=== PATIENT | female | born 1975 | race Caucasian/White ===

== ENCOUNTER → 2024-01-09 13:32 | Outpatient (REF) | payer BC, SELFPAY | LOC: WDC 13:32 | PROVIDERS: ATTENDING PHYSICIAN Obstetrics & Gynecology; FAMILY PHYSICIAN Physician Assistant Medical | DX: R92.2 Inconclusive mammogram (principal); Z91.89 Other specified personal risk factors, not elsewhere classified; Z12.31 Encounter for screening mammogram for malignant neoplasm of breast | CPT/HCPCS: 77049; 77063; 77067; A9585 ==

== ENCOUNTER → 2024-04-24 10:14 | Outpatient (REF) | payer BC, SELFPAY | LOC: HWRAD 10:14 | PROVIDERS: ATTENDING PHYSICIAN Physician Assistant Medical | DX: R10.9 Unspecified abdominal pain (principal); R31.9 Hematuria, unspecified; Z87.442 Personal history of urinary calculi | CPT/HCPCS: 74176 ==

== ENCOUNTER 2024-04-25 11:47 | Emergency (ER) | payer BC, SELFPAY ==
[2024-04-25 11:50] VITALS: BP 146/90
--- NOTE | 2024-04-25 12:50 | ED.GENMED ---
History of Present Illness
General
Chief Complaint: Back Pain
Source: patient
Exam Limitations: none
Time Seen by Provider: 04/25/24 12:20
Nursing documentation reviewed up to this point in time: agreed with
History of Present Illness
History of Present Illness:
Patient to ED with complaint of right lower back pain that radiates at times to right side of abdomen. Symptoms started 1 week ago and continue to worsen. SHe was evaluated by PCP and sent for CT yesterday AM to r/o renal stones. CT reveals
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 Taking ibuprofen without improvement. SHe was seen by her chiropractor this AM for an adjustement. States her chiropractor recommends muscle relaxant and steroids. Brought to ED by
spouse for eval. Denies fever/chills, n/v/d. No urinary symptoms. No weakness in extremities, no saddle paresthesia. No history of trauma. States she was helping her mother move but does not recall injuring self. Pain is wrose with movemeng,
worse in AM
Past History
Past History
ED Past Medical History: Other (kidney stones)
ED Past Surgical History: Tonsilectomy and Other (TMJ surgery)
Social History
Tobacco: Non-smoker
Drug: None
Personal:
Living: with family
Employment: Employed
Review of Systems
Review of Systems
Allergies reviewed?: Yes
All Other Systems: ROS reviewed and negative except as documented in HPI and ROS
Constitutional: Reports no symptoms
EENT: Reports no symptoms
Respiratory: Reports no symptoms
Cardiac: Reports no symptoms
ABD/GI: Reports no symptoms
: Reports no symptoms
Musculoskeletal: Reports back pain (right low back pain)
Skin: Reports no symptoms
Neurological: Reports no symptoms
Psychiatric: Reports no symptoms
Phy Exam
General Physical Exam
General Presentation: well appearing and mild distress
General age: appears stated age
General Skin: warm and dry
General Habitus: normal
General Mental: alert
Reflexes
Reflexes: +3: Left patellar and +3: Right patellar
Musculoskeletal Exam
Musculoskeletal Exam: neuro vasc intact
Skin Exam
Skin Exam: normal color, warm/dry and no rash
Psychiatric Exam
Psychiatric Exam: normal mood/affect
Course
Orders/Labs/Results
Orders:
Orders
04/25/24 12:46
Hydrocodone 5/APAP 325 [[place] 5/325] 1 tablet PO NOW STA
Prednisone [Deltasone] 40 mg PO NOW STA
Vital Signs
Initial and Last Documented VS:
Initial Vital Signs
Temp Pulse Resp BP Pulse Ox
98.4 F 84 18 146/90 100
04/25/24 11:50 04/25/24 11:50 04/25/24 11:50 04/25/24 11:50 04/25/24 11:50
Last Documented Vital Signs
Temp Pulse Resp BP Pulse Ox
98.4 F 84 18 146/90 100
04/25/24 11:50 04/25/24 11:50 04/25/24 11:50 04/25/24 11:50 04/25/24 11:50
MDM/Problems Addressed
Differential Diagnosis Includes:
Patient to ED with right low back pain x 1 week. No history of trauma but does report helping her mother move just prior to pain starting. Outpatient CT reviewed, no evidence of renal stone. Mesenteric panniculitis seen but unchanged from prior
study. SHe is aware of this diagnosis. Pain occassionally radiates to right side of abdomen but is consistent to right lower back region. Neurologically intact. No concern at this time for cauda equina. No urinary s/s. WIll give short course
of pain meds, steroid, muscle relaxant. Close follow up with PCP. Given instructions for s/s to return to ED and she is agreeable to plan.
*Radiology
Radiology exam reviewed: radiology read reviewed
*Critical Care Note
Total Time (30-74mins, 75-104mins- exclusive of procedures): Not Applicable
ED Attending Note
-
Portions of this chart may have been created with voice recognition software.� Occasional wrong word or��sound alike� substitutions may have occurred due to the inherent limitations of voice recognition software.
Discharge Plan
Departure
Patient Disposition: Home (Routine Discharge)
Date of Disposition: 04/25/24
Time of Disposition: 12:47
Patient with high blood pressure during this ER visit?: No
Condition: Good
Covid-19: Not Applicable
Discharge Problem:
Low back pain
Instructions: Low Back Pain (DC)
Prescriptions:
New
cyclobenzaprine 10 mg tablet
10 mg PO HS PRN (Reason: muscle spasms) Qty: 7 0RF
hydrocodone-acetaminophen 5-325 mg tablet
1 tab PO Q4H PRN (Reason: Pain) Qty: 10 0RF
prednisone 20 mg tablet
40 mg PO DAILY Qty: 8 0RF
No Action
duloxetine 60 MG capsule,delayed release(DR/EC)
60 mg PO DAILY
oxycodone-acetaminophen 5 MG/325 MG tablet
2 tab PO Q4HPRN PRN (Reason: severe pain) Qty: 0 0RF
oxycodone-acetaminophen 5 MG/325 MG tablet
1 tab PO Q4HPRN PRN (Reason: moderate pain) Qty: 25 0RF
docusate sodium 100 MG capsule
100 mg PO BIDPRN PRN (Reason: constipation) Qty: 30 0RF
ibuprofen 600 MG tablet
600 mg PO Q4HPRN PRN (Reason: mild pain) Qty: 30 0RF
ondansetron 4 mg tablet,disintegrating
4 mg PO TIDPRN PRN (Reason: nausea/vomiting) Qty: 10 0RF
Referrals:
Lauren Servin PA-C [Family Provider] - Follow up in 2-3 days
Interventions
Interventions:
*Risk Screen - Suicide Last Done: 04/25/24 11:50
*General Assessment Last Done: 04/25/24 11:50
*Neglect/Abuse Screening Last Done: 04/25/24 11:50
Discharge Date and Time
Print Language: IVORIAN
Musculoskeletal Injury Exam
Musculoskeletal Injury Exam
Right Lower Back:
Pain with Movement?: Moderate
Soft tissue swelling?: None
External deformity and angulation?: None
Joint effusion?: None
Contusion?: None
Hematoma-local bleeding into tissue?: None
Strain- Sprain- Tear (Connective tissue injury)?: Moderate
Crepitus with movement?: No
Joint instability?: No
Malalignment/deformity?: No
Range of motion: Limited
Distal skin color and temperature: normal-warm & good color
Capillary Refill: normal
Normal distal neurovascular exam?: Yes
[2024-04-25] MEDS: NORCO 5/325 1 TABLET PO (12:56)
[2024-04-25] MEDS: DELTASONE 40 MG PO (12:56)
[2024-04-25 13:10] VITALS: BP 138/88
== END 2024-04-25 13:11 | disposition home or self-care (01) ==
LOC: EMR 11:47
PROVIDERS: EMERGENCY PHYSICIAN Emergency Medicine; FAMILY PHYSICIAN Physician Assistant Medical
DX: M54.50 Low back pain, unspecified (principal); Z87.442 Personal history of urinary calculi; Z88.1 Allergy status to other antibiotic agents; Z88.3 Allergy status to other anti-infective agents; Z88.0 Allergy status to penicillin
CPT/HCPCS: 99283